=== PATIENT | female | born 1990 ===

== ENCOUNTER → 2020-02-29 | Outpatient (CLI) | payer SELFPAY ==
[~2020-02-29] MED LIST: ASCO500 PO; ERYT.5TO OD; MULTCH; TYLECOD3 PO
[2020-03-02 14:11] LABS: HPV 16 Negative (Negative); HPV 18 Negative (Negative); HPV OTHER HR TYPES Negative (Negative)
== END ==
LOC: LAB UCHC 15:10 → LAB SHORT 15:10
PROVIDERS: Registered Nurse Community Health
DX: Z01.419 Encounter for gynecological examination (general) (routine) without abnormal findings (principal)
CPT/HCPCS: 87624; G0123

== ENCOUNTER → 2023-04-16 | Outpatient (CLI) | payer OTHER ==
[2023-04-25 12:51] LABS: HPV GENOTYPE 16 Not Detected; HPV GENOTYPE 18 Not Detected; HPV HIGH RISK Not Detected; HPV SOURCE Cervical
== END ==
LOC: LAB SHORT 11:22 → LAB 11:22
PROVIDERS: Registered Nurse Community Health
DX: Z12.4 Encounter for screening for malignant neoplasm of cervix (principal)
CPT/HCPCS: 87624; G0123

== ENCOUNTER → 2024-05-05 | Outpatient (CLI) | payer OTHER | LOC: LAB SHORT 14:38 → LAB 14:38 | DX: O09.93 Supervision of high risk pregnancy, unspecified, third trimester (principal); O99.213 Obesity complicating pregnancy, third trimester | CPT/HCPCS: 87081; 87150 ==

== ENCOUNTER 2024-05-30 04:19 | Inpatient (IN) | payer OTHER ==
[2024-05-30] VITALS (44 sets, daily range): BP systolic 81–148; BP diastolic 45–83
[~2024-05-30] VITALS: Ht 162.6 cm; Wt 120.0 kg
[2024-05-30] MEDS ORDERED: Carboprost Tromethamine 250 MCG/ML 1ML Amp IM PRN (04:35)
[2024-05-30] MEDS ORDERED: Methylergonovine Maleate 0.2MG / ML 1ML Amp IM PRN (04:35)
[2024-05-30] MEDS ORDERED: Oxytocin 10 Unit / ML Vial IM PRN (04:35)
[2024-05-30] MEDS ORDERED: Lactated Ringer's 1,000 ML IV SCH ×2 (04:35→17:25)
[2024-05-30] MEDS ORDERED: Misoprostol 200 MCG Tab PR PRN (04:35)
[2024-05-30] MEDS ORDERED: ePHEDrine Sulfate 50 MG/ML 1ML Injection XX PRN (04:35)
[2024-05-30] MEDS ORDERED: Misoprostol 200 MCG Tab BC PRN (04:35)
[2024-05-30] MEDS ORDERED: FentaNYL 2mcg/ml-Bup 0.1% Epd 250 ML EPI PRN (04:35)
[2024-05-30] MEDS ORDERED: Tranexamic Acid 1,000 MG in NS 100 ML IV SCH (04:35)
[2024-05-30] MEDS ORDERED: OXYTOCIN/RINGER'S LACTATE 500 ML IV PRN (04:35)
[2024-05-30] MEDS ORDERED: Lactated Ringer's 1,000 ML IV PRN ×2 (04:35)
[2024-05-30] MEDS ORDERED: Acetaminophen 500 MG Tab PO PRN (04:40)
[2024-05-30] MEDS ORDERED: Ondansetron HCl 2 MG / ML 2ML Vial IV PRN (04:40)
[2024-05-30] MEDS ORDERED: Calcium Carbonate 500 MG Tab Chew PO PRN (04:40)
[2024-05-30 06:37] LABS: BASOPHILS ABSOLUTE AUTO 0.04 K/mm3 (0.00-0.23); BASOPHILS PERCENT AUTO 0 % (0-2); EOSINOPHILS ABSOLUTE AUTO 0.15 K/mm3 (0.00-0.68); EOSINOPHILS PERCENT AUTO 1 % (0-6); Hematocrit 39.5 % (33.0-51.0); Hemoglobin 13.6 g/dL (11.5-16.0); IMMATURE GRAN ABSOLUTE AUTO 0.19 K/mm3 (0.00-0.10); IMMATURE GRAN PERCENT AUTO 2 % (0-1); LYMPHOCYTES ABSOLUTE AUTO 2.49 K/mm3 (0.84-5.20); LYMPHOCYTES PERCENT AUTO 23 % (21-46); MONOCYTES ABSOLUTE AUTO 0.74 K/mm3 (0.16-1.47); MONOCYTES PERCENT AUTO 7 % (4-13); Mean Corpuscular HGB 29.2 pg (26.0-34.0); Mean Corpuscular HGB Conc 34.4 g/dL (31.5-36.5); Mean Corpuscular Volume 85 fL (80-100); Mean Platelet Volume 9.6 fL (9.1-12.4); NEUTROPHILS ABSOLUTE AUTO 7.26 K/mm3 (1.96-9.15); NEUTROPHILS PERCENT AUTO 67 % (41-73); Platelet Count 289 K/mm3 (150-400); RDW Coefficient Variation 14.5 % (11.7-14.2); RDW Standard Deviation 44.3 fL (35.1-46.3); Red Blood Cell Count 4.65 M/mm3 (3.80-5.20); White Blood Cell Count 10.87 K/mm3 (4.00-11.30)
[2024-05-30] MEDS ORDERED: OXYTOCIN/RINGER'S LACTATE 500 ML IV SCH (17:20)
--- NOTE | 2024-05-30 19:00 | NUR ---
Assumed care of patient, report given by day shift RN Brittanie
[2024-05-31] VITALS (14 sets, daily range): BP systolic 100–131; BP diastolic 50–73
[2024-05-31] MEDS ORDERED: Benzocaine Topical Anesthetic Spray 60GM TOP PRN (01:35)
[2024-05-31] MEDS ORDERED: Acetaminophen 500 MG Tab PO PRN (01:40)
[2024-05-31] MEDS ORDERED: Lactated Ringer's 1,000 ML IV SCH (01:40)
[2024-05-31] MEDS ORDERED: Acetaminophen/Codeine 300-30 mg PO PRN (01:40)
[2024-05-31] MEDS ORDERED: FLU VACC TS2024-25(6MOS UP)/PF 45 MCG/0.5 ML SYRINGE IM ONE (01:40)
[2024-05-31] MEDS ORDERED: Lanolin Cream TOP PRN (01:40)
[2024-05-31] MEDS ORDERED: Witch Hazel/Glycerin PADS TOP PRN (01:40)
[2024-05-31] MEDS ORDERED: Rho(D) Immune Globulin 300 MCG / SYR IM ONE (01:45)
[2024-05-31] MEDS ORDERED: Polyethylene Glycol 3350 17 gm PO PRN (01:45)
[2024-05-31 08:04] LABS: Hematocrit 36.8 % (33.0-51.0); Hemoglobin 12.5 g/dL (11.5-16.0); Mean Corpuscular HGB 29.1 pg (26.0-34.0); Mean Corpuscular Volume 86 fL (80-100); Mean Platelet Volume 9.6 fL (9.1-12.4); Platelet Count 261 K/mm3 (150-400); RDW Coefficient Variation 14.7 % (11.7-14.2); RDW Standard Deviation 45.9 fL (35.1-46.3); White Blood Cell Count 16.46 K/mm3 (4.00-11.30)
[2024-05-31] MEDS ORDERED: Prenatal Vit/FE Fumarate/FA 1 Tab PO SCH (09:00)
[2024-06-01 01:14] VITALS: BP 120/79
[2024-06-01 07:49] VITALS: BP 118/67
--- NOTE | 2024-06-01 10:51 | NUR ---
0800 discharge instructions given. parents denie any further questions or concerns. 1020, hugs removed and bands matched. all vitals for mother and within normal limits at discharge.
== END 2024-06-01 10:45 | disposition home or self-care (01) | DRG 807 ==
LOC: OBS 04:19 → BC 04:56
PROVIDERS: Family Medicine; ADMIT Obstetrics & Gynecology
PROC: 10E0XZZ Delivery of Products of Conception, External Approach (ICD-10-PCS; principal; 2024-05-31)
DX: O42.02 Full-term premature rupture of membranes, onset of labor within 24 hours of rupture (principal); Z37.0 Single live birth; Z3A.39 39 weeks gestation of pregnancy; O99.214 Obesity complicating childbirth; Z90.89 Acquired absence of other organs; O26.893 Other specified pregnancy related conditions, third trimester; M41.9 Scoliosis, unspecified; Z88.2 Allergy status to sulfonamides; Z88.1 Allergy status to other antibiotic agents; Z88.8 Allergy status to other drugs, medicaments and biological substances; Z79.899 Other long term (current) drug therapy; Z67.11 Type A blood, Rh negative; Z28.21 Immunization not carried out because of patient refusal; O77.0 Labor and delivery complicated by meconium in amniotic fluid
CPT/HCPCS: 36415; 51702; 59025; 85025; 85027; 86850; 86900; 86901; 86923; 99214; A9270; J2405; J2590; J7120